=== PATIENT | male | born 1970 | race African-American/Black ===

== ENCOUNTER → 2017-10-30 | Outpatient (CLI) | payer OTHER | LOC: M PAIN 11:15 | DX: M51.26 Other intervertebral disc displacement, lumbar region (principal); M54.16 Radiculopathy, lumbar region; F41.9 Anxiety disorder, unspecified; F32.9 Major depressive disorder, single episode, unspecified; I10 Essential (primary) hypertension; G47.30 Sleep apnea, unspecified; F43.10 Post-traumatic stress disorder, unspecified; Z88.0 Allergy status to penicillin | CPT/HCPCS: G0463 ==

== ENCOUNTER → 2019-05-04 | Outpatient (CLI) | payer OTHER ==
[~2019-05-04] MED LIST: GASTROGRAFIN SOLUTION 30ML (Q9963) As Ordered ONE; ISOVUE-370 76% 100ML VIAL (Q9967) As Ordered ONE
--- NOTE | 2019-05-04 19:31 | REP ---
CT of the abdomen and pelvis without and with IV contrast and with bowel contrast. The patient complains of suprapubic and left lower quadrant abdominal pain. There are no comparisons. The visualized lung peter are unremarkable. The hepatic parenchyma is homogeneous. The gallbladder, pancreas and spleen are normal size and unremarkable. The adrenals are unremarkable. There are bilateral renal calculi. There is no hydronephrosis. There are no ureteral calculi. There are no bladder calculi. There are no renal masses. There are a few small sub centimeter renal cortical cysts bilaterally. The abdominal aorta is unremarkable. There is no retroperitoneal adenopathy or mass. There is no bowel distension or obstruction. The cecum is on a redundant mesentery and resides medial to the proximal descending colon. The appendix is unremarkable. There is a moderate volume of fecal residue in the ascending colon. There is a mild volume of fecal residue in the transverse colon. There is minimal fecal residue in the descending and sigmoid colon. There is no diverticulosis or diverticulitis. There is no mesenteric adenopathy, mass or ascites. Pelvis: The bladder is unremarkable. There is no pelvic ascites or adenopathy. There is no pelvic mass. There are calcifications in the pelvis bilaterally, likely phleboliths. There is no bladder mass. No bladder calculi. Impression: There are small calculi in the kidneys bilaterally. There are no ureteral or bladder calculi. There is no hydronephrosis. There are small renal cortical cysts bilaterally. There is no perinephric stranding. No renal masses. There is no ascites, adenopathy or mass. There is no bowel distension or obstruction. The cecum is on a redundant mesentery resides medial to the proximal ascending colon. There is no diverticulosis or diverticulitis. No evidence of colonic fecal overloading for constipation. Electronically Signed by Qamar Leo MD 05/04/2019 07:22 P
== END ==
LOC: M RAD 16:28
PROVIDERS: ATTEND Physician Assistant
DX: N20.0 Calculus of kidney (principal); N28.1 Cyst of kidney, acquired; R10.32 Left lower quadrant pain; R10.2 Pelvic and perineal pain; K59.00 Constipation, unspecified
CPT/HCPCS: 74178; Q9963; Q9967

== ENCOUNTER → 2019-06-23 | Outpatient (CLI) | payer OTHER ==
--- NOTE | 2019-06-24 07:29 | REP ---
Clinical: Tinnitus . Comparison: None . Findings: The ventricles, sulci, and cisterns are normal in position and appearance. Mendoza-white differentiation is maintained. No acute intracranial hemorrhage, mass/mass effect, pathology or trauma/injury. No evidence for acute infarction. No extra-axial fluid collection. Calvarium is intact. Paranasal sinuses and mastoid air cells are clear. Auditory canals appear relatively normal and symmetric. Impression: Normal noncontrast head CT. No evidence for acute intracranial pathology or trauma/injury. Electronically Signed by Yusuf Schwartz MD 06/24/2019 07:21 A
== END ==
LOC: M RAD 17:31
PROVIDERS: ATTEND Otolaryngology
DX: H93.12 Tinnitus, left ear (principal); Z87.820 Personal history of traumatic brain injury

== ENCOUNTER → 2020-12-13 | Outpatient (CLI) | payer SELFPAY | LOC: M LABSMTC 12:25 | PROVIDERS: ATTEND Pediatrics | DX: Z20.822 Contact with and (suspected) exposure to COVID-19 (principal) ==